=== PATIENT | female | born 1960 | race Caucasian/White ===

== ENCOUNTER 2018-03-24 19:22 | Emergency (ER) | payer BC ==
[~2018-03-24] VITALS: Ht 154.9 cm; Wt 81.7 kg
--- NOTE | ~2018-03-24 | EKG ---
[address] [address] ELECTROCARDIOGRAM REPORT Name: DALIA HENRY Room #: DEP [facility]#: [id number] Admission: 03/24/18 Attend Phys: Discharge: 03/24/18 Date of : 62 Report #: [id number] THIS REPORT FOR: //name// [facility] ED Test Date: 2018-03-24 Test Time: 19:32:22 Pat Name: DALIA HENRY Department: Room: Gender: F It Administrator: EMERSON : 1960 Requested By: Aubree Bunn Order Number: [id number] MD: Robles Figueroa Measurements Intervals [place] Rate: 69 P: 45 [place]: 158 QRS: 48 QRSD: 101 T: 29 QT: 383 QTc: 411 Interpretive Statements Sinus rhythm No significant abnormality No previous ECG available for comparison Electronically Signed On 03-25-2018 8:00:45 PLACING JUDGE by Robles Figueroa [email or web address] <ELECTRONICALLY SIGNED> By: Robles Figueroa MD, [facility] 03/25/18 0800 [id number] 31 Robles Figueroa MD, FACC /EPI
[2018-03-24] MEDS ORDERED: ASPIR 8181 MG PO (19:34)
[2018-03-24] MEDS ORDERED: LIPITOR 20 MG T20 M1 PO (19:34)
[2018-03-24] MEDS ORDERED: OMEPRAZOLE 20 M20 M1 PO (19:35)
[2018-03-24] MEDS ORDERED: MIRALAX17 GM PO (19:36)
[2018-03-24] MEDS ORDERED: LOPRESSOR50 PO (19:36)
[2018-03-24] MEDS ORDERED: ZYRTEC10 M5 PO (19:36)
[2018-03-24] MEDS ORDERED: COLACE100 MG PO (19:36)
[2018-03-24 20:48] LABS: ABSOLUTE NEUTROPHILS 7.1 thou/uL (1.4-8.2); BASOPHILS 0.7 % (0.0-2.0); EOSINOPHILS 1.9 % (0.0-3.0); HEMATOCRIT 44.9 % (37.0-47.0); LYMPHOCYTES 19.6 % (24.0-44.0); MCH 32.1 pg (26.0-34.0); MCHC 35.5 g/dL (28.0-37.0); MCV 90.2 fL (80.0-100.0); MONOCYTES 7.1 % (1.0-8.0); PLATELET COUNT 237 thou/uL (150-400); POLYS 70.7 % (36.0-66.0); RBC 4.98 mil/uL (4.20-5.00)
[2018-03-24 21:01] LABS: ANION GAP 7 mmol/L (7-16); BUN 14 mg/dL (7-18); CALCIUM 10.1 mg/dL (8.5-10.1); CHLORIDE 106 mmol/L (98-107); CO2 27 mmol/L (21-32); CREATININE 0.9 mg/dL (0.6-1.0); GLUCOSE 105 mg/dL (74-106); POTASSIUM 3.4 mmol/L (3.5-5.1); SODIUM 140 mmol/L (136-145)
[2018-03-24 21:04] LABS: APTT 25.4 Seconds (24.5-32.8); D-DIMER 0.32 ug/mLFEU (0.19-0.50); PROTIME 10.4 Seconds (9.3-11.4)
[2018-03-24 21:07] LABS: ALBUMIN 3.8 g/dL (3.4-5.0); LIPASE 139 U/L (73-393); SGOT 22 U/L (15-37); SGPT 32 U/L (30-65); TOTAL BILIRUBIN 0.4 mg/dL (<0.1-1.0); TOTAL PROTEIN 7.5 g/dL (6.4-8.2); TROPONIN-I <0.06 ng/mL (<0.06)
[2018-03-24 23:22] VITALS: BP 136/60
== END 2018-03-24 23:28 | disposition home or self-care (01) ==
LOC: ER 19:22
PROVIDERS: Physician Assistant
DX: I16.0 Hypertensive urgency (principal); E78.5 Hyperlipidemia, unspecified; K21.9 Gastro-esophageal reflux disease without esophagitis; E66.9 Obesity, unspecified; Z68.34 Body mass index [BMI] 34.0-34.9, adult